=== PATIENT | male | born 1945 | race Caucasian/White ===

== ENCOUNTER 2017-06-11 20:29 | Inpatient (IN) | payer OTHER ==
[~2017-06-11] VITALS: Ht 170.2 cm; Wt 70.6 kg
[2017-06-11] MEDS ORDERED: NYST100016 TOP (20:47)
[2017-06-11] MEDS ORDERED: HALO100I IM (20:47)
[2017-06-11] MEDS ORDERED: DOCU250C11 PO (20:47)
[2017-06-11] MEDS ORDERED: HYDR25TA4 PO (20:47)
[2017-06-11] MEDS ORDERED: ATV/1 PO (20:47)
[2017-06-11] MEDS ORDERED: LEVO50TA6 PO (20:47)
--- NOTE | 2017-06-11 20:56 | EMERGENCY ROOM VISIT NOTE ---
History Report prepared by Edith: Kristina Chand Under the Supervision of: Dr. Kamaljit Jacobson D.O. First contact with patient: 20:47 Chief Complaint: BLEEDING Stated Complaint: UNABLE TO VOID, CATHETER History of Present Illness The patient is a 72 year old male who presents to the Emergency Room with complaints of sudden bleeding in the right lower groin beginning today. Per police, the patient had a hernia repair and has a catheter. The patient denies having fevers. Source of History: patient, police Onset: today Position: other (right lower groin ) Quality: other (bleeding ) Timing: other (sudden ) Associated Symptoms: No fevers Review of Systems See HPI for pertinent positives & negatives. A total of 10 systems reviewed and were otherwise negative. Past Medical & Surgical Surgical Problems: (1) H/O hernia repair Family History No pertinent family history stated. Social History Smoking Status: Former Smoker Housing Status: other (jail ) Current/Historical Medications Scheduled Docusate Sodium (Docusate Sodium), 500 MG PO BID Haloperidol Decanoate (Haldol Decanoate 100), 1 ML IM [id number] Hydrochlorothiazide (Hctz), 25 MG PO DAILY Levothyroxine Sodium (Levothyroxine Sodium), 50 MCG PO DAILY Lorazepam (Ativan), 1 MG PO DAILY Nystatin (Topical) (Nyamyc), 1 DOSE TOP BID Allergies Coded Allergies: Penicillins (Verified Allergy, Unknown, Unsure, 06/11/17) Physical Exam Vital Signs Date Time Temp Pulse Resp B/P (MAP) Pulse Ox O2 Delivery O2 Flow Rate FiO2 06/12/17 00:22 75 16 126/76 97 Room Air 06/11/17 22:27 88 16 121/76 96 Room Air 06/11/17 20:36 37.0 97 18 127/86 96 Room Air Physical Exam GENERAL: Patient is awake, alert, and in no acute distress. Patient is resting comfortably and showing no signs of anxiety EYES: The conjunctivae are clear. The pupils are round and reactive. EARS, NOSE, MOUTH AND THROAT: The nose is without any evidence of any deformity. Mucous membranes are moist tongue is midline NECK: The neck is nontender and supple. RESPIRATORY: Normal respiratory effort is noted there is no evidence of wheezing rhonchi or rales CARDIOVASCULAR: Regular rate and rhythm noted there no murmurs rubs or gallops normal S1 normal S2 GASTROINTESTINAL: The abdomen is mildly distended but soft. No specific guarding or rigidity. MUSCULOSKELETAL/EXTREMITIES: There is no evidence of gross deformity full range of motion is noted in the hips and shoulders. Trace pedal edema bilaterally. SKIN: Significant swelling and ecchymosis in right inguinal area consistent with recent inguinal hernia repair. Ecchymosis was noted tracking into the right jose luis-scrotum. NEUROLOGIC: Baseline. Medical Decision & Procedures ER Provider Diagnostic Interpretation: Radiology results as stated below per my review and radiologist interpretation: ABDOMEN 2VIEW W/PA CHEST RTN CLINICAL HISTORY: Abdominal pain COMPARISON STUDY: No previous studies for comparison. FINDINGS: The heart is normal in size. There is a retrocardiac opacity consistent with a hiatal hernia. There is bibasal interstitial thickening. There is no free intraperitoneal air. There is suspected focal eventration right hemidiaphragm with probable colonic interposition. There are bilateral rib deformities. There are no abnormally dilated loops of large or small bowel. There are no transition zones indicate bowel obstruction. There is ar 5 mm right-sided abdominal calcification, likely representing either a renal calculus or gallstone. IMPRESSION: 1. No evidence of bowel obstruction. No evidence of free air 2. Right-sided abdominal calcification, likely representing either renal calculus or gallstone Electronically signed by: Keegan Lee M.D. 06/11/2017 9:50 PM Dictated Date/Time: 06/11/2017 9:48 PM Laboratory Results Test 06/11/17 21:10 Prothrombin Time 10.1 SECONDS (9.0-12.0) Prothromb Time International Ratio 0.9 (0.9-1.1) Activated Partial Thromboplast Time 26.4 SECONDS (21.0-31.0) Partial Thromboplastin Ratio 1.0 Total Bilirubin 0.2 mg/dl (0.2-1) Direct Bilirubin < 0.1 mg/dl (0-0.2) Aspartate Amino Transf (AST/SGOT) 15 U/L (15-37) Alanine Aminotransferase (ALT/SGPT) 14 U/L (12-78) Alkaline Phosphatase 78 U/L (45-117) Total Protein 6.7 gm/dl (6.4-8.2) Albumin 2.9 gm/dl (3.4-5.0) Laboratory results per my review. ED Course 2049: The patient was evaluated in room C6. A complete history and physical examination were performed. 2229: I updated the patient on his results. 2247: The patient is still bleeding. 2326: I discussed the patient's case with Dr. Jay. He will come evaluate the patient. 0005: I discussed the patient's case with Dr. Fontanez. The patient will be evaluated for further management. 0015: Upon reevaluation, the patient is resting. I discussed results and treatment plan with him. He verbalizes agreement and understanding. I spoke with Dr. Fontanez of [facility]. The patient will be evaluated for further management and care. Medical Decision Nursing notes reviewed. The patient is a 72-year-old male who presented to the emergency department for an evaluation of swelling and pain in the right groin. The patient had a recent right inguinal hernia surgery at [facility] but he was brought here by the jail transportation for an evaluation of postop swelling and bleeding. The patient had significant pain in the area. I discussed this case with the on- call general surgeon. He was evaluated in the emergency department by the general surgeon. He was felt to be a good candidate for observation because of his swelling and bleeding. I discussed his case with the on-call [facility] hospitalist. They have agreed to evaluate the patient in the emergency department for further management and disposition. Medication Reconcilliation Current Medication List: was personally reviewed by me Blood Pressure Screening Patient's blood pressure: Normal blood pressure Consults Time Called: 2319 Consulting Physician: Dr. Jay-Surgery Returned Call: [phone] I discussed the patient's case with Dr. Jay. He will come evaluate the patient. Additional Consults: Time Called: 2344 Consulted Physician: Dr. Fontanez-[facility] Returned Call: [phone] Additional Comments: I discussed the patient's case with Dr. Fontanez. The patient will be evaluated for further management. Impression Primary Impression: Post-op bleeding Scribe Attestation The scribe's documentation has been prepared under my direction and personally reviewed by me in its entirety. I confirm that the note above accurately reflects all work, treatment, procedures, and medical decision making performed by me. Departure Information Dispostion Home / Self-Care Referrals Cherelle PENDLETON (PCP) Forms HOME CARE DOCUMENTATION FORM, IMPORTANT VISIT INFORMATION Patient Instructions ED Wound Check Post Op Bleeding, My [facility] Additional Instructions Follow-up with the general surgeon this week for reevaluation. Continue to do dressing changes 2-3 times a day. Avoid any strenuous activity.
[2017-06-11 21:20] LABS: BASO % 0.4 %; BASO ABS # 0.02 K/uL (0-0.2); COMPLETE YES; EOS % 5.6 %; IG% 0.2 %; LYMPH % 21.3 %; LYMPH ABS # 1.11 K/uL (1.2-3.4); MEAN CELL VOLUME 89.1 fL (80-100); MEAN CORPUSCULAR HEMOGLOBIN 29.2 pg (25-34); MEAN CORPUSCULAR HGB CONC 32.8 g/dl (32-36); MEAN PLATELET VOLUME 8.6 fL (7.4-10.4); MONO % 12.1 %; NEUT % 60.4 %; PLATELET COUNT 225 K/uL (130-400); RED BLOOD COUNT 3.59 M/uL (4.7-6.1); WHITE BLOOD COUNT 5.22 K/uL (4.8-10.8)
[2017-06-11 21:37] LABS: ALT/SGPT 14 U/L (12-78); BLOOD UREA NITROGEN 31 mg/dl (7-18); BUN/CREATININE RATIO 33.8 (10-20); CALCIUM 8.8 mg/dl (8.5-10.1); CARBON DIOXIDE 31 mmol/L (21-32); CHLORIDE 105 mmol/L (98-107); CREATININE 0.92 mg/dl (0.60-1.40); GLUCOSE 165 mg/dl (70-99); POTASSIUM 3.1 mmol/L (3.5-5.1); SODIUM 139 mmol/L (136-145)
[2017-06-11 21:39] LABS: ALKALINE PHOSPHATASE 78 U/L (45-117); AST/SGOT 15 U/L (15-37)
[2017-06-11 21:45] LABS: INR 0.9 (0.9-1.1); PROTHROMBIN TIME (PATIENT) 10.1 SECONDS (9.0-12.0)
--- NOTE | 2017-06-11 21:51 | DIAGNOSTIC IMAGING REPORT ---
ABDOMEN 2VIEW W/PA CHEST RTN CLINICAL HISTORY: Abdominal pain COMPARISON STUDY: No previous studies for comparison. FINDINGS: The heart is normal in size. There is a retrocardiac opacity consistent with a hiatal hernia. There is bibasal interstitial thickening. There is no free intraperitoneal air. There is suspected focal eventration right hemidiaphragm with probable colonic interposition. There are bilateral rib deformities. There are no abnormally dilated loops of large or small bowel. There are no transition zones indicate bowel obstruction. There is ar 5 mm right-sided abdominal calcification, likely representing either a renal calculus or gallstone. IMPRESSION: 1. No evidence of bowel obstruction. No evidence of free air 2. Right-sided abdominal calcification, likely representing either renal calculus or gallstone Electronically signed by: Keegan Lee M.D. 06/11/2017 9:50 PM Dictated Date/Time: 06/11/2017 9:48 PM
--- NOTE | 2017-06-12 00:24 | Surgery Consultation ---
Consultation Date of Consultation: Jun 12, 2017. Attending Physician: History of Present Illness The patient is a 72 year old male who presents to the Emergency Room with complaints of sudden bleeding in the right lower groin beginning today. Per police, the patient had a hernia repair and has a catheter. The patient denies having fevers. now pt denies pain on right inguinal area, no active bleeding from incision site, pt had right inguinal hernia repair by other surgeon in other hospital on 06/03/2017. Past Medical/Surgical History Medical Problems: (1) Post-op bleeding Status: Acute Social History Smoking Status: Former Smoker Smokeless Tobacco Use: No Alcohol Use: occasionally Drug Use: none Housing Status: other (long-term ) Allergies Coded Allergies: Penicillins (Verified Allergy, Unknown, Unsure, 06/11/17) Home Medications Scheduled Docusate Sodium (Docusate Sodium), 500 MG PO BID Haloperidol Decanoate (Haldol Decanoate 100), 1 ML IM [id number] Hydrochlorothiazide (Hctz), 25 MG PO DAILY Levothyroxine Sodium (Levothyroxine Sodium), 50 MCG PO DAILY Lorazepam (Ativan), 1 MG PO DAILY Nystatin (Topical) (Nyamyc), 1 DOSE TOP BID Review of Systems Constitutional: No fever, No chills, No sweats, No weight loss, No weakness, No fatigue, No problem reported Eyes: No worsening of vision, No eye pain, No redness, No discharge, No diplopia, No problem reported ENT: No hearing loss, No unusual epistaxis, No nasal symptoms, No sore throat, No tinnitus, No dental problems, No trouble swallowing, No problem reported Respiratory: No cough, No sputum, No wheezing, No shortness of breath, No dyspnea on exertion, No dyspnea at rest, No hemoptysis, No problem reported Cardiovascular: No chest pain, No orthopnea, No PND, No edema, No claudication , No palpitations, No problem reported Abdomen: + problem reported (S/P right inguinal hernia repair on 06/03/2017), No pain, No nausea, No vomiting, No diarrhea, No constipation, No GI bleeding Genitourinary - Male: No hematuria, No dysuria, No urinary frequency, No urinary urgency, No urinary hesitancy, No urinary retention, No urinary incontinence, No penile discharge, No lesions, No impotence, No problem reported Neurologic: No memory loss, No paralysis, No weakness, No numbness/tingling, No vertigo, No balance problems, No problem reported Psychiatric: No depression symptoms, No anhedonism, No anxiety, No insomnia, No substance abuse, No problem reported Endocrine: No fatigue, No excessive thirst, No excessive urination, No problem reported Hematologic / Lymphatic: No abnormal bleeding/bruising, No clotting problems, No swollen lymph nodes, No night sweats, No problem reported Physical Exam Date Time Temp Pulse Resp B/P (MAP) Pulse Ox O2 Delivery O2 Flow Rate FiO2 06/11/17 22:27 88 16 121/76 96 Room Air 06/11/17 20:36 37.0 97 18 127/86 96 Room Air General Appearance: WD/WN, no apparent distress Head: normocephalic Eyes: normal inspection ENT: normal ENT inspection Neck: supple, no JVD Respiratory/Chest: chest non-tender, lungs clear Cardiovascular: regular rate, rhythm, no edema, no gallop, no JVD, no murmur Abdomen/GI: normal bowel sounds, non tender, soft (some swelling on right inguinal incision, no active bleeding, no redness, no tenderness, ) Extremities/Musculoskelatal: normal inspection, no calf tenderness, normal capillary refill Neurologic/Psych: no motor/sensory deficits, alert, normal mood/affect Skin: normal color, warm/dry, no rash Laboratory Results Last 24 Hours Test 06/11/17 21:10 White Blood Count 5.22 K/uL Red Blood Count 3.59 M/uL Hemoglobin 10.5 g/dL Hematocrit 32.0 % Mean Corpuscular Volume 89.1 fL Mean Corpuscular Hemoglobin 29.2 pg Mean Corpuscular Hemoglobin Concent 32.8 g/dl Platelet Count 225 K/uL Mean Platelet Volume 8.6 fL Neutrophils (%) (Auto) 60.4 % Lymphocytes (%) (Auto) 21.3 % Monocytes (%) (Auto) 12.1 % Eosinophils (%) (Auto) 5.6 % Basophils (%) (Auto) 0.4 % Neutrophils # (Auto) 3.16 K/uL Lymphocytes # (Auto) 1.11 K/uL Monocytes # (Auto) 0.63 K/uL Eosinophils # (Auto) 0.29 K/uL Basophils # (Auto) 0.02 K/uL RDW Standard Deviation 47.5 fL RDW Coefficient of Variation 14.5 % Immature Granulocyte % (Auto) 0.2 % Immature Granulocyte # (Auto) 0.01 K/uL Prothrombin Time 10.1 SECONDS Prothromb Time International Ratio 0.9 Activated Partial Thromboplast Time 26.4 SECONDS Partial Thromboplastin Ratio 1.0 Sodium Level 139 mmol/L Potassium Level 3.1 mmol/L Chloride Level 105 mmol/L Carbon Dioxide Level 31 mmol/L Anion Gap 4.0 mmol/L Blood Urea Nitrogen 31 mg/dl Creatinine 0.92 mg/dl Est Creatinine Clear Calc Drug Dose 68.9 ml/min Estimated GFR () 96.6 Estimated GFR (Non- 83.4 BUN/Creatinine Ratio 33.8 Random Glucose 165 mg/dl Calcium Level 8.8 mg/dl Total Bilirubin 0.2 mg/dl Direct Bilirubin < 0.1 mg/dl Aspartate Amino Transf (AST/SGOT) 15 U/L Alanine Aminotransferase (ALT/SGPT) 14 U/L Alkaline Phosphatase 78 U/L Total Protein 6.7 gm/dl Albumin 2.9 gm/dl Assessment & Plan Assement: pt is a 72 year old male who presents to ER for incision bleeding after 8 days right inguinal hernia repair, IMP: S/P right inguinal hernia repair, incision hemotoma Plan, I recommend that hospitalist will admit pt to hospital, for 1-2 days, repeat CBC in AM, I will F/U, Thanks,
[2017-06-12] MEDS ORDERED: ONDANSETRON INJ 2 MG/ML 2 ML VIAL IV PRN (01:45)
[2017-06-12] MEDS ORDERED: ACETAMINOPHEN 325 MG TAB PO PRN (01:45)
--- NOTE | 2017-06-12 01:47 | History and Physical ---
History & Physical Date & Time of Service: Jun 12, 2017 at 01:46 Chief Complaint: Unable To Void, Catheter Primary Care Physician: Cherelle PENDLETON History of Present Illness Source: patient, clinic records, hospital records, police Patient is a 72 Yr male with PMH of Neurogenic bladder, HTN, Hypothyroidism, Schizophrenia and other problems who recently got Right Inguinal hernia repair presents with history of sudden onset of bleeding from the surgical site today. Patient is a very poor historian and most of the history is obtained from Old medical records, ED staff. Patient denies any history of chest pain, SOB, abdominal pain, nausea, vomiting, fever, chills, headache, dizziness. No other history could be obtained. Past Medical/Surgical History Surgical Problems: (1) H/O hernia repair Status: Resolved Family History Could not be obtained as patient is poor historian Social History Smoking Status: Former Smoker Smokeless Tobacco Use: No Alcohol Use: occasionally Drug Use: none Allergies Coded Allergies: Penicillins (Verified Allergy, Unknown, Unsure, 06/11/17) Home Medications Scheduled Docusate Sodium (Docusate Sodium), 500 MG PO BID Haloperidol Decanoate (Haldol Decanoate 100), 1 ML IM [id number] Hydrochlorothiazide (Hctz), 25 MG PO DAILY Levothyroxine Sodium (Levothyroxine Sodium), 50 MCG PO DAILY Lorazepam (Ativan), 1 MG PO DAILY Nystatin (Topical) (Nyamyc), 1 DOSE TOP BID Review of Systems See HPI for pertinent positives & negatives. A total of 10 systems reviewed and were otherwise negative. Physical Exam Vital Signs Date Time Temp Pulse Resp B/P (MAP) Pulse Ox O2 Delivery O2 Flow Rate FiO2 06/12/17 00:22 75 16 126/76 97 Room Air 06/11/17 22:27 88 16 121/76 96 Room Air 06/11/17 20:36 37.0 97 18 127/86 96 Room Air General Appearance: WD/WN, no apparent distress Head: normocephalic, atraumatic Eyes: normal inspection, PERRL, EOMI, sclerae normal ENT: normal ENT inspection, hearing grossly normal Neck: supple, no JVD, trachea midline Respiratory/Chest: chest non-tender, lungs clear, normal breath sounds, no respiratory distress, no accessory muscle use Cardiovascular: regular rate, rhythm, no edema, no murmur Abdomen/GI: non tender, soft, + hernia (abdominal), + pertinent finding (Right Inguinal ricardo and dressing with bleeding) Back: normal inspection Extremities/Musculoskelatal: normal inspection, no pedal edema Neurologic/Psych: no motor/sensory deficits, alert, normal mood/affect, oriented x 3, + pertinent finding (Grossly no focal deficits) Skin: normal color, warm/dry Diagnostics Laboratory Results Results Past 24 Hours Test 06/11/17 21:10 Range/Units White Blood Count 5.22 4.8-10.8 K/uL Red Blood Count 3.59 4.7-6.1 M/uL Hemoglobin 10.5 14.0-18.0 g/dL Hematocrit 32.0 42-52 % Mean Corpuscular Volume 89.1 80-100 fL Mean Corpuscular Hemoglobin 29.2 25-34 pg Mean Corpuscular Hemoglobin Concent 32.8 32-36 g/dl Platelet Count 225 130-400 K/uL Mean Platelet Volume 8.6 7.4-10.4 fL Neutrophils (%) (Auto) 60.4 % Lymphocytes (%) (Auto) 21.3 % Monocytes (%) (Auto) 12.1 % Eosinophils (%) (Auto) 5.6 % Basophils (%) (Auto) 0.4 % Neutrophils # (Auto) 3.16 1.4-6.5 K/uL Lymphocytes # (Auto) 1.11 1.2-3.4 K/uL Monocytes # (Auto) 0.63 0.11-0.59 K/uL Eosinophils # (Auto) 0.29 0-0.5 K/uL Basophils # (Auto) 0.02 0-0.2 K/uL RDW Standard Deviation 47.5 36.4-46.3 fL RDW Coefficient of Variation 14.5 11.5-14.5 % Immature Granulocyte % (Auto) 0.2 % Immature Granulocyte # (Auto) 0.01 0.00-0.02 K/uL Prothrombin Time 10.1 9.0-12.0 SECONDS Prothromb Time International Ratio 0.9 0.9-1.1 Activated Partial Thromboplast Time 26.4 21.0-31.0 SECONDS Partial Thromboplastin Ratio 1.0 Sodium Level 139 136-145 mmol/L Potassium Level 3.1 3.5-5.1 mmol/L Chloride Level 105 98-107 mmol/L Carbon Dioxide Level 31 21-32 mmol/L Anion Gap 4.0 3-11 mmol/L Blood Urea Nitrogen 31 7-18 mg/dl Creatinine 0.92 0.60-1.40 mg/dl Est Creatinine Clear Calc Drug Dose 68.9 ml/min Estimated GFR () 96.6 Estimated GFR (Non- 83.4 BUN/Creatinine Ratio 33.8 10-20 Random Glucose 165 70-99 mg/dl Calcium Level 8.8 8.5-10.1 mg/dl Total Bilirubin 0.2 0.2-1 mg/dl Direct Bilirubin < 0.1 0-0.2 mg/dl Aspartate Amino Transf (AST/SGOT) 15 15-37 U/L Alanine Aminotransferase (ALT/SGPT) 14 12-78 U/L Alkaline Phosphatase 78 45-117 U/L Total Protein 6.7 6.4-8.2 gm/dl Albumin 2.9 3.4-5.0 gm/dl Diagnostic Radiology CT ABD: 1. No evidence of bowel obstruction. No evidence of free air 2. Right-sided abdominal calcification, likely representing either renal calculus or gallstone Impression Assessment and Plan S/P right inguinal hernia repair, Incision hematoma Acute blood loss anemia: No signs of infection CT abd: No evidence of bowel obstruction. No evidence of free air Appreciate Surgery Input Monitor Hb Transfuse PRN if Hb <7 wound care Hypokalemia: Replace and monitor check Mag levels Neurogenic bladder: Uses straight cath TID at baseline per records HTN: continue home meds Hypothyroidism: continue levothyroxine Schizophrenia continue home meds DVT PX: SCDs Code Status: Full Code VTE Prophylaxis VTE Risk Assessment Done? Y/N: Yes Risk Level: Low
[2017-06-12] MEDS ORDERED: POTASSIUM CHLORIDE 10 MEQ TABCR PO ONE (02:00)
[2017-06-12 02:20] VITALS: BP 149/90; PULSE 79; TEMP 36.8; O2SAT 98; Ht 170.2 cm; Wt 70.6 kg
[2017-06-12 02:45] LABS: BASO % 0.6 %; BASO ABS # 0.03 K/uL (0-0.2); COMPLETE YES; EOS % 5.6 %; HEMATOCRIT 33.1 % (42-52); IG% 0.2 %; LYMPH % 31.2 %; LYMPH ABS # 1.68 K/uL (1.2-3.4); MEAN CELL VOLUME 89.2 fL (80-100); MEAN CORPUSCULAR HEMOGLOBIN 29.4 pg (25-34); MEAN CORPUSCULAR HGB CONC 32.9 g/dl (32-36); MEAN PLATELET VOLUME 8.7 fL (7.4-10.4); MONO % 9.3 %; NEUT % 53.1 %; PLATELET COUNT 230 K/uL (130-400); RED BLOOD COUNT 3.71 M/uL (4.7-6.1); WHITE BLOOD COUNT 5.39 K/uL (4.8-10.8)
[2017-06-12] MEDS ORDERED: POTASSIUM CHLORIDE INJ 40 MEQ in SODIUM CHLORIDE 0.9% 1000ML 1,000 ML IV ONE (03:00)
[2017-06-12 03:10] LABS: BUN/CREATININE RATIO 30.5 (10-20); CALCIUM 8.7 mg/dl (8.5-10.1); CREATININE 0.9 mg/dl (0.60-1.40); MAGNESIUM 1.9 mg/dl (1.8-2.4); POTASSIUM 3.5 mmol/L (3.5-5.1)
[2017-06-12] MEDS ORDERED: INFLUENZA VACCINE HIGH DOSE 65+ 0.5 ML SYR IM. ONE (03:45)
[2017-06-12] MEDS ORDERED: PNEUMOCOCCAL ADMINISTRATION CHARGE ONE (03:45)
[2017-06-12] MEDS ORDERED: PNEUMOCOCCAL POLYSACCHARIDES 25 MCG/0.5 ML VIAL/SYR IM. ONE (03:45)
[2017-06-12] MEDS ORDERED: INFLUENZA ADMINISTRATION CHARGE ONE (03:45)
[2017-06-12] MEDS: LEVOTHYROXINE 50 MCG TAB PO SCH (05:46)
[2017-06-12 07:11] VITALS: BP 146/82; PULSE 71; TEMP 36.9; O2SAT 99
[2017-06-12] MEDS ORDERED: NURSING VERBAL MED ORDER ONE (08:45)
[2017-06-12] MEDS: LORAZEPAM 1 MG TAB PO SCH (09:29)
[2017-06-12] MEDS: HYDROCHLOROTHIAZIDE 25 MG TAB PO SCH (09:29)
[2017-06-12] MEDS: DOCUSATE SODIUM 100 MG CAP PO SCH ×2 (09:30→20:32)
[2017-06-12] MEDS ORDERED: HALOPERIDOL DECANOATE INJ 50 MG/ML VIAL IM SCH (10:00)
--- NOTE | 2017-06-12 13:02 | Surgery Progress Note ---
Surgery Progress Note Date of Service Jun 12, 2017. Subjective I got a call for some drainage from incision, pt denies fever, no incision pain, I remove the dressing, no drainage from incision now, no redness, some swelling on incision, Objective Vital Signs: Date Time Temp Pulse Resp B/P (MAP) Pulse Ox O2 Delivery O2 Flow Rate FiO2 06/12/17 07:45 Room Air 06/12/17 07:11 36.9 71 18 146/82 (103) 99 Room Air 06/12/17 03:10 Room Air 06/12/17 02:20 36.8 79 16 149/90 98 Room Air 06/12/17 00:22 75 16 126/76 97 Room Air 06/11/17 22:27 88 16 121/76 96 Room Air 06/11/17 20:36 37.0 97 18 127/86 96 Room Air General Appearance: WD/WN Head: normocephalic Neck: supple, no JVD Respiratory/Chest: chest non-tender, lungs clear Cardiovascular: regular rate, rhythm, no edema Abdomen: normal bowel sounds, non tender, non distended, soft Incision(s): clean, dry, intact, no erythema, no drainage, hematoma Extremities: normal range of motion, non-tender, normal inspection Laboratory Results: Results Past 24 Hours Test 06/11/17 21:10 06/12/17 02:32 Range/Units White Blood Count 5.22 5.39 4.8-10.8 K/uL Red Blood Count 3.59 3.71 4.7-6.1 M/uL Hemoglobin 10.5 10.9 14.0-18.0 g/dL Hematocrit 32.0 33.1 42-52 % Mean Corpuscular Volume 89.1 89.2 80-100 fL Mean Corpuscular Hemoglobin 29.2 29.4 25-34 pg Mean Corpuscular Hemoglobin Concent 32.8 32.9 32-36 g/dl Platelet Count 225 230 130-400 K/uL Mean Platelet Volume 8.6 8.7 7.4-10.4 fL Neutrophils (%) (Auto) 60.4 53.1 % Lymphocytes (%) (Auto) 21.3 31.2 % Monocytes (%) (Auto) 12.1 9.3 % Eosinophils (%) (Auto) 5.6 5.6 % Basophils (%) (Auto) 0.4 0.6 % Neutrophils # (Auto) 3.16 2.87 1.4-6.5 K/uL Lymphocytes # (Auto) 1.11 1.68 1.2-3.4 K/uL Monocytes # (Auto) 0.63 0.50 0.11-0.59 K/uL Eosinophils # (Auto) 0.29 0.30 0-0.5 K/uL Basophils # (Auto) 0.02 0.03 0-0.2 K/uL RDW Standard Deviation 47.5 47.9 36.4-46.3 fL RDW Coefficient of Variation 14.5 14.7 11.5-14.5 % Immature Granulocyte % (Auto) 0.2 0.2 % Immature Granulocyte # (Auto) 0.01 0.01 0.00-0.02 K/uL Prothrombin Time 10.1 9.0-12.0 SECONDS Prothromb Time International Ratio 0.9 0.9-1.1 Activated Partial Thromboplast Time 26.4 21.0-31.0 SECONDS Partial Thromboplastin Ratio 1.0 Sodium Level 139 141 136-145 mmol/L Potassium Level 3.1 3.5 3.5-5.1 mmol/L Chloride Level 105 106 98-107 mmol/L Carbon Dioxide Level 31 31 21-32 mmol/L Anion Gap 4.0 4.0 3-11 mmol/L Blood Urea Nitrogen 31 27 7-18 mg/dl Creatinine 0.92 0.90 0.60-1.40 mg/dl Est Creatinine Clear Calc Drug Dose 68.9 70.4 ml/min Estimated GFR () 96.6 99.2 Estimated GFR (Non- 83.4 85.6 BUN/Creatinine Ratio 33.8 30.5 10-20 Random Glucose 165 94 70-99 mg/dl Calcium Level 8.8 8.7 8.5-10.1 mg/dl Total Bilirubin 0.2 0.2-1 mg/dl Direct Bilirubin < 0.1 0-0.2 mg/dl Aspartate Amino Transf (AST/SGOT) 15 15-37 U/L Alanine Aminotransferase (ALT/SGPT) 14 12-78 U/L Alkaline Phosphatase 78 45-117 U/L Total Protein 6.7 6.4-8.2 gm/dl Albumin 2.9 3.4-5.0 gm/dl Magnesium Level 1.9 1.8-2.4 mg/dl Microbiology Results 06/12/17 MRSA DNA Surveillance Screen - Final, Complete Specimen Negative for MRSA by DNA Probe Assessment & Plan IMP S/P right inguinal hernia repair some drainage from incision per-nurse, most likely some peritoneal fluid leak from resection hernia sac, now no active leak, I recommend , keep pt here for one more day, bed rest, I will check the incision tomorrow, possible D/C tomorrow.
[2017-06-12 13:20] LABS: HEMATOCRIT 32.1 % (42-52)
[2017-06-12 15:38] VITALS: BP 133/87; PULSE 80; TEMP 37; O2SAT 95
--- NOTE | 2017-06-12 16:43 | Surgery Progress Note ---
Surgery Progress Note Date of Service Jun 12, 2017. Subjective Post OP Day: POD # 9 s/p right inguinal hernia repair at outside hospital LATE ENTRY FOR PATIENT 7:30 AM ROUNDING unable to obtain ROS by patient, very hard to understand patient. Objective Vital Signs: Date Time Temp Pulse Resp B/P (MAP) Pulse Ox O2 Delivery O2 Flow Rate FiO2 06/12/17 15:38 37.0 80 18 133/87 (102) 95 Room Air 06/12/17 07:45 Room Air 06/12/17 07:11 36.9 71 18 146/82 (103) 99 Room Air 06/12/17 03:10 Room Air 06/12/17 02:20 36.8 79 16 149/90 98 Room Air 06/12/17 00:22 75 16 126/76 97 Room Air 06/11/17 22:27 88 16 121/76 96 Room Air 06/11/17 20:36 37.0 97 18 127/86 96 Room Air General Appearance: WD/WN, no apparent distress Head: normocephalic, atraumatic Incision(s): clean, dry, intact, no erythema, no drainage, ecchymosis ( moderate ecchymosis of the right groin and lateral hip, no significnat edema, nontender to palpation) Laboratory Results: Results Past 24 Hours Test 06/11/17 21:10 06/12/17 02:32 06/12/17 13:09 Range/Units White Blood Count 5.22 5.39 4.8-10.8 K/uL Red Blood Count 3.59 3.71 4.7-6.1 M/uL Hemoglobin 10.5 10.9 10.4 14.0-18.0 g/dL Hematocrit 32.0 33.1 32.1 42-52 % Mean Corpuscular Volume 89.1 89.2 80-100 fL Mean Corpuscular Hemoglobin 29.2 29.4 25-34 pg Mean Corpuscular Hemoglobin Concent 32.8 32.9 32-36 g/dl Platelet Count 225 230 130-400 K/uL Mean Platelet Volume 8.6 8.7 7.4-10.4 fL Neutrophils (%) (Auto) 60.4 53.1 % Lymphocytes (%) (Auto) 21.3 31.2 % Monocytes (%) (Auto) 12.1 9.3 % Eosinophils (%) (Auto) 5.6 5.6 % Basophils (%) (Auto) 0.4 0.6 % Neutrophils # (Auto) 3.16 2.87 1.4-6.5 K/uL Lymphocytes # (Auto) 1.11 1.68 1.2-3.4 K/uL Monocytes # (Auto) 0.63 0.50 0.11-0.59 K/uL Eosinophils # (Auto) 0.29 0.30 0-0.5 K/uL Basophils # (Auto) 0.02 0.03 0-0.2 K/uL RDW Standard Deviation 47.5 47.9 36.4-46.3 fL RDW Coefficient of Variation 14.5 14.7 11.5-14.5 % Immature Granulocyte % (Auto) 0.2 0.2 % Immature Granulocyte # (Auto) 0.01 0.01 0.00-0.02 K/uL Prothrombin Time 10.1 9.0-12.0 SECONDS Prothromb Time International Ratio 0.9 0.9-1.1 Activated Partial Thromboplast Time 26.4 21.0-31.0 SECONDS Partial Thromboplastin Ratio 1.0 Sodium Level 139 141 136-145 mmol/L Potassium Level 3.1 3.5 3.5-5.1 mmol/L Chloride Level 105 106 98-107 mmol/L Carbon Dioxide Level 31 31 21-32 mmol/L Anion Gap 4.0 4.0 3-11 mmol/L Blood Urea Nitrogen 31 27 7-18 mg/dl Creatinine 0.92 0.90 0.60-1.40 mg/dl Est Creatinine Clear Calc Drug Dose 68.9 70.4 ml/min Estimated GFR () 96.6 99.2 Estimated GFR (Non- 83.4 85.6 BUN/Creatinine Ratio 33.8 30.5 10-20 Random Glucose 165 94 70-99 mg/dl Calcium Level 8.8 8.7 8.5-10.1 mg/dl Total Bilirubin 0.2 0.2-1 mg/dl Direct Bilirubin < 0.1 0-0.2 mg/dl Aspartate Amino Transf (AST/SGOT) 15 15-37 U/L Alanine Aminotransferase (ALT/SGPT) 14 12-78 U/L Alkaline Phosphatase 78 45-117 U/L Total Protein 6.7 6.4-8.2 gm/dl Albumin 2.9 3.4-5.0 gm/dl Magnesium Level 1.9 1.8-2.4 mg/dl Microbiology Results 06/12/17 MRSA DNA Surveillance Screen - Final, Complete Specimen Negative for MRSA by DNA Probe Assessment & Plan POD # 9 s/p right inguinal hernia repair at outside hospital. Presented to emergency department with post operative bleeding last evening. Bleeding has stopped. There is some mild edema of the surgical site, no active bleeding. Hemoglobin has remained stable overnight. Plan: Patient was originally seen at 7:[address] Jay. Patient doing well, incision was clean/dry/intact without any bleeding or active drainage. H&H stable. Recommend discharge back to correctional facility and close follow-up with Surgeon in 3 days. Was called later in the morning by nursing staff due to moderate amount of bleeding from incision site. I did not visualize the bleeding but re-inspected the surgical site. Moderate swelling present but no active bleeding or drainage. Compression dressing applied. Advised bed rest and observation for the night. continue medical management will re-evaluate tomorrow morning. Dr. Jay has seen and examined patient, agrees with above.
--- NOTE | 2017-06-12 17:27 | Progress Note ---
Internal Med Progress Note Date of Service: Jun 12, 2017. Provider Documentation: SUBJECTIVE: resting comfortably some pain at right inguinal hernia surgery site tolerating diet afebrile no sob OBJECTIVE: Vital Signs-as noted below Exam: General-alert and awake. Not in distress ENT-normal hearing Neck-no neck masses Lungs-cta b/l no wheezing or crackles present Heart-s1 and s2 heard regular rate and rhythm no murmurs Abdomen-soft bowel sounds present abdominal hernia seen right inguinal hernia repair site in dressing and clean Extremities-no erythema no edema Neuro-alert and awake moves extremities Lab data as noted below. ASSESSMENT & PLAN: S/P right inguinal hernia repair#9, Incision hematoma Acute blood loss anemia: No signs of infection CT abd: unremarkable hb stable to observe tonight and if stable to d/c in am Hypokalemia: Replace Neurogenic bladder: Uses straight cath TID at baseline per records HTN: stable on hctz Hypothyroidism: on levothyroxine Schizophrenia continue home meds DVT PX: SCDs DISPOSITION possible d/c in am if stable Vital Signs: Date Time Temp Pulse Resp B/P (MAP) Pulse Ox O2 Delivery O2 Flow Rate FiO2 06/12/17 15:38 37.0 80 18 133/87 (102) 95 Room Air 06/12/17 15:30 Room Air 06/12/17 07:45 Room Air 06/12/17 07:11 36.9 71 18 146/82 (103) 99 Room Air 06/12/17 03:10 Room Air 06/12/17 02:20 36.8 79 16 149/90 98 Room Air 06/12/17 00:22 75 16 126/76 97 Room Air 06/11/17 22:27 88 16 121/76 96 Room Air 06/11/17 20:36 37.0 97 18 127/86 96 Room Air Lab Results: Results Past 24 Hours Test 06/11/17 21:10 06/12/17 02:32 06/12/17 13:09 Range/Units White Blood Count 5.22 5.39 4.8-10.8 K/uL Red Blood Count 3.59 3.71 4.7-6.1 M/uL Hemoglobin 10.5 10.9 10.4 14.0-18.0 g/dL Hematocrit 32.0 33.1 32.1 42-52 % Mean Corpuscular Volume 89.1 89.2 80-100 fL Mean Corpuscular Hemoglobin 29.2 29.4 25-34 pg Mean Corpuscular Hemoglobin Concent 32.8 32.9 32-36 g/dl Platelet Count 225 230 130-400 K/uL Mean Platelet Volume 8.6 8.7 7.4-10.4 fL Neutrophils (%) (Auto) 60.4 53.1 % Lymphocytes (%) (Auto) 21.3 31.2 % Monocytes (%) (Auto) 12.1 9.3 % Eosinophils (%) (Auto) 5.6 5.6 % Basophils (%) (Auto) 0.4 0.6 % Neutrophils # (Auto) 3.16 2.87 1.4-6.5 K/uL Lymphocytes # (Auto) 1.11 1.68 1.2-3.4 K/uL Monocytes # (Auto) 0.63 0.50 0.11-0.59 K/uL Eosinophils # (Auto) 0.29 0.30 0-0.5 K/uL Basophils # (Auto) 0.02 0.03 0-0.2 K/uL RDW Standard Deviation 47.5 47.9 36.4-46.3 fL RDW Coefficient of Variation 14.5 14.7 11.5-14.5 % Immature Granulocyte % (Auto) 0.2 0.2 % Immature Granulocyte # (Auto) 0.01 0.01 0.00-0.02 K/uL Prothrombin Time 10.1 9.0-12.0 SECONDS Prothromb Time International Ratio 0.9 0.9-1.1 Activated Partial Thromboplast Time 26.4 21.0-31.0 SECONDS Partial Thromboplastin Ratio 1.0 Sodium Level 139 141 136-145 mmol/L Potassium Level 3.1 3.5 3.5-5.1 mmol/L Chloride Level 105 106 98-107 mmol/L Carbon Dioxide Level 31 31 21-32 mmol/L Anion Gap 4.0 4.0 3-11 mmol/L Blood Urea Nitrogen 31 27 7-18 mg/dl Creatinine 0.92 0.90 0.60-1.40 mg/dl Est Creatinine Clear Calc Drug Dose 68.9 70.4 ml/min Estimated GFR () 96.6 99.2 Estimated GFR (Non- 83.4 85.6 BUN/Creatinine Ratio 33.8 30.5 10-20 Random Glucose 165 94 70-99 mg/dl Calcium Level 8.8 8.7 8.5-10.1 mg/dl Total Bilirubin 0.2 0.2-1 mg/dl Direct Bilirubin < 0.1 0-0.2 mg/dl Aspartate Amino Transf (AST/SGOT) 15 15-37 U/L Alanine Aminotransferase (ALT/SGPT) 14 12-78 U/L Alkaline Phosphatase 78 45-117 U/L Total Protein 6.7 6.4-8.2 gm/dl Albumin 2.9 3.4-5.0 gm/dl Magnesium Level 1.9 1.8-2.4 mg/dl Microbiology Results 06/12/17 MRSA DNA Surveillance Screen - Final, Complete Specimen Negative for MRSA by DNA Probe
[2017-06-12 23:21] VITALS: BP 134/75; PULSE 72; TEMP 36.8; O2SAT 97
[2017-06-13] MEDS: LEVOTHYROXINE 50 MCG TAB PO SCH ×2 (06:00→06:22)
[2017-06-13 06:45] LABS: BUN/CREATININE RATIO 25.6 (10-20); CALCIUM 8.5 mg/dl (8.5-10.1); CREATININE 0.92 mg/dl (0.60-1.40); MAGNESIUM 1.9 mg/dl (1.8-2.4)
[2017-06-13 08:07] LABS: BASO % 0.4 %; BASO ABS # 0.02 K/uL (0-0.2); COMPLETE YES; HEMATOCRIT 32.4 % (42-52); IG% 0.2 %; LYMPH % 32.2 %; LYMPH ABS # 1.54 K/uL (1.2-3.4); MEAN CORPUSCULAR HEMOGLOBIN 29.9 pg (25-34); MEAN CORPUSCULAR HGB CONC 33.6 g/dl (32-36); MEAN PLATELET VOLUME 9.2 fL (7.4-10.4); MONO % 7.7 %; NEUT % 55.5 %; PLATELET COUNT 244 K/uL (130-400); RED BLOOD COUNT 3.64 M/uL (4.7-6.1); WHITE BLOOD COUNT 4.79 K/uL (4.8-10.8)
[2017-06-13 08:49] VITALS: BP 149/94; PULSE 77; TEMP 36.8; O2SAT 98
[2017-06-13] MEDS: DOCUSATE SODIUM 100 MG CAP PO SCH (09:00)
[2017-06-13] MEDS: LORAZEPAM 1 MG TAB PO SCH (09:00)
[2017-06-13] MEDS: HYDROCHLOROTHIAZIDE 25 MG TAB PO SCH (09:01)
--- NOTE | 2017-06-13 10:16 | Surgery Progress Note ---
Surgery Progress Note Date of Service Jun 13, 2017. Subjective Post OP Day: POD # 10 s/p right inguinal hernia repair at outside hospital again ROS unreliable from patient Objective Vital Signs: Date Time Temp Pulse Resp B/P (MAP) Pulse Ox O2 Delivery O2 Flow Rate FiO2 06/13/17 08:49 36.8 77 17 149/94 (112) 98 Room Air 06/13/17 07:50 Room Air 06/12/17 23:45 Room Air 06/12/17 23:21 36.8 72 16 134/75 (94) 97 Room Air 06/12/17 15:38 37.0 80 18 133/87 (102) 95 Room Air 06/12/17 15:30 Room Air General Appearance: WD/WN, no apparent distress Head: normocephalic, atraumatic Neck: trachea midline Respiratory/Chest: no respiratory distress, no accessory muscle use Incision(s): clean, dry, intact, findings (dressing clean and dry, there is moderate edema at incision site and ecchymosis however stable and not increasing compared to yesterdays exam) Laboratory Results: Results Past 24 Hours Test 06/12/17 13:09 06/13/17 06:01 Range/Units Hemoglobin 10.4 10.9 14.0-18.0 g/dL Hematocrit 32.1 32.4 42-52 % White Blood Count 4.79 4.8-10.8 K/uL Red Blood Count 3.64 4.7-6.1 M/uL Mean Corpuscular Volume 89.0 80-100 fL Mean Corpuscular Hemoglobin 29.9 25-34 pg Mean Corpuscular Hemoglobin Concent 33.6 32-36 g/dl Platelet Count 244 130-400 K/uL Mean Platelet Volume 9.2 7.4-10.4 fL Neutrophils (%) (Auto) 55.5 % Lymphocytes (%) (Auto) 32.2 % Monocytes (%) (Auto) 7.7 % Eosinophils (%) (Auto) 4.0 % Basophils (%) (Auto) 0.4 % Neutrophils # (Auto) 2.66 1.4-6.5 K/uL Lymphocytes # (Auto) 1.54 1.2-3.4 K/uL Monocytes # (Auto) 0.37 0.11-0.59 K/uL Eosinophils # (Auto) 0.19 0-0.5 K/uL Basophils # (Auto) 0.02 0-0.2 K/uL RDW Standard Deviation 48.2 36.4-46.3 fL RDW Coefficient of Variation 14.9 11.5-14.5 % Immature Granulocyte % (Auto) 0.2 % Immature Granulocyte # (Auto) 0.01 0.00-0.02 K/uL Sodium Level 141 136-145 mmol/L Potassium Level 4.0 3.5-5.1 mmol/L Chloride Level 106 98-107 mmol/L Carbon Dioxide Level 30 21-32 mmol/L Anion Gap 5.0 3-11 mmol/L Blood Urea Nitrogen 24 7-18 mg/dl Creatinine 0.92 0.60-1.40 mg/dl Est Creatinine Clear Calc Drug Dose 68.9 ml/min Estimated GFR () 96.6 Estimated GFR (Non- 83.4 BUN/Creatinine Ratio 25.6 10-20 Random Glucose 85 70-99 mg/dl Calcium Level 8.5 8.5-10.1 mg/dl Magnesium Level 1.9 1.8-2.4 mg/dl Troponin I < 0.015 0-0.045 ng/ml Assessment & Plan POD # 10 s/p right inguinal hernia repair at outside hospital. Presented to emergency department with post operative bleeding. Bleeding has stopped. There is some mild edema of the surgical site, no active bleeding. Hemoglobin has remained stable 10.9/32.4 respectively today. Plan: No active bleeding, edema and ecchymosis stable. Stable from post operative perspective Discharge back to correctional facility once medically stable Should keep compression dressing on incision site and change daily or as needed Follow-up with Surgeon who repaired hernia in about 3 days for follow-up and possible staple removal Dr. aJy has seen and examined patient, agrees with above.
--- NOTE | 2017-06-13 12:55 | Discharge Instructions ---
Discharge Instructions Date of Service Jun 13, 2017. Admission Reason for Admission: Post-Op Bleeding Discharge Discharge Diagnosis / Problem: POST OP BLEEDING FORM RECENT RIGHT INGUINAL HERNIA SURGERY- STABLE Discharge Goals Goal(s): Decrease discomfort, Improve function Activity Recommendations Activity Limitations: resume your previous activity . Instructions / Follow-Up Instructions / Follow-Up FOLLOWUP WITH SURGERY IN 3 DAYS SHOULD KEEP COMPRESSION DRESSING ON INCISION SITE AND CHANGE DAILY OR NEEDED UNTIL SEEN BY SURGERY FOLLOWUP WITH FAMILY DOCTOR IN ONE WEEK Current Hospital Diet Patient's current hospital diet: AHA Diet (Heart Healthy) Discharge Diet Recommended Diet: AHA Diet (Heart Healthy) Pending Studies Studies pending at discharge: no Medical Emergencies . Who to Call and When: Medical Emergencies: If at any time you feel your situation is an emergency, please call 911 immediately. . Non-Emergent Contact Non-Emergency issues call your: Primary Care Provider . . "Provider Documentation" section prepared by Omi Thapa. . VTE Core Measure Inpt VTE Proph given/why not?: SCD's
[2017-06-13 13:18] VITALS: BP 149/94; PULSE 77; TEMP 36.8; O2SAT 98
--- NOTE | 2017-06-13 18:31 | Progress Note ---
Internal Med Progress Note Date of Service: Jun 13, 2017. Provider Documentation: SUBJECTIVE: resting comfortably says no pain or nausea afebrile OBJECTIVE: Vital Signs-as noted below Exam: General-alert and awake. Not in distress ENT-normal hearing Neck-no neck masses Lungs-cta b/l no wheezing or crackles present Heart-s1 and s2 heard regular rate and rhythm no murmurs Abdomen-soft bowel sounds present abdominal hernia seen right inguinal hernia repair site in dressing and clean Extremities-no erythema no edema Neuro-alert and awake moves extremities Lab data as noted below. ASSESSMENT & PLAN: S/P right inguinal hernia repair#10, Incision hematoma Acute blood loss anemia: No signs of infection CT abd: unremarkable hb stable seen by surghery and appreciate inputs discharged to f/u with surgery soon Hypokalemia: Replaced Neurogenic bladder: Uses straight cath TID at baseline per records HTN: stable on hctz Hypothyroidism: on levothyroxine Schizophrenia continue home meds discharged Vital Signs: Date Time Temp Pulse Resp B/P (MAP) Pulse Ox O2 Delivery O2 Flow Rate FiO2 06/13/17 13:18 36.8 77 17 98 Room Air 06/13/17 08:49 36.8 77 17 149/94 (112) 98 Room Air 06/13/17 07:50 Room Air 06/12/17 23:45 Room Air 06/12/17 23:21 36.8 72 16 134/75 (94) 97 Room Air Lab Results: Results Past 24 Hours Test 06/13/17 06:01 Range/Units White Blood Count 4.79 4.8-10.8 K/uL Red Blood Count 3.64 4.7-6.1 M/uL Hemoglobin 10.9 14.0-18.0 g/dL Hematocrit 32.4 42-52 % Mean Corpuscular Volume 89.0 80-100 fL Mean Corpuscular Hemoglobin 29.9 25-34 pg Mean Corpuscular Hemoglobin Concent 33.6 32-36 g/dl Platelet Count 244 130-400 K/uL Mean Platelet Volume 9.2 7.4-10.4 fL Neutrophils (%) (Auto) 55.5 % Lymphocytes (%) (Auto) 32.2 % Monocytes (%) (Auto) 7.7 % Eosinophils (%) (Auto) 4.0 % Basophils (%) (Auto) 0.4 % Neutrophils # (Auto) 2.66 1.4-6.5 K/uL Lymphocytes # (Auto) 1.54 1.2-3.4 K/uL Monocytes # (Auto) 0.37 0.11-0.59 K/uL Eosinophils # (Auto) 0.19 0-0.5 K/uL Basophils # (Auto) 0.02 0-0.2 K/uL RDW Standard Deviation 48.2 36.4-46.3 fL RDW Coefficient of Variation 14.9 11.5-14.5 % Immature Granulocyte % (Auto) 0.2 % Immature Granulocyte # (Auto) 0.01 0.00-0.02 K/uL Sodium Level 141 136-145 mmol/L Potassium Level 4.0 3.5-5.1 mmol/L Chloride Level 106 98-107 mmol/L Carbon Dioxide Level 30 21-32 mmol/L Anion Gap 5.0 3-11 mmol/L Blood Urea Nitrogen 24 7-18 mg/dl Creatinine 0.92 0.60-1.40 mg/dl Est Creatinine Clear Calc Drug Dose 68.9 ml/min Estimated GFR () 96.6 Estimated GFR (Non- 83.4 BUN/Creatinine Ratio 25.6 10-20 Random Glucose 85 70-99 mg/dl Calcium Level 8.5 8.5-10.1 mg/dl Magnesium Level 1.9 1.8-2.4 mg/dl Troponin I < 0.015 0-0.045 ng/ml
--- NOTE | 2017-06-13 18:33 | Discharge Summary ---
Discharge Summary Date of Service Jun 13, 2017. Discharge Summary Admission Date: Jun 12, 2017 at 01:46 Discharge Date: Jun 13, 2017 Discharge Disposition: Home (correctional facility) Principal Diagnosis: Recent inguinal hernia repair site bleeding/hematoma acute blood loss anemia Secondary Diagnoses/Problems: Neurogenic bladder, HTN, Hypothyroidism, Schizophrenia Procedures: CHEST/ABDOMINAL XRAY: 1. No evidence of bowel obstruction. No evidence of free air 2. Right-sided abdominal calcification, likely representing either renal calculus or gallstone Consultations: SURGERY Medication Reconciliation Continued Medications: Docusate Sodium (Docusate Sodium) 250 Mg Cap 500 MG PO BID Haloperidol Decanoate (Haldol Decanoate 100) 100 Mg/Ml Inj 1 ML IM [id number] for 30 Days, #1 ML 2 Refills Hydrochlorothiazide (Hctz) 25 Mg Tab 25 MG PO DAILY, TAB Levothyroxine Sodium (Levothyroxine Sodium) 50 Mcg Tab 50 MCG PO DAILY, TAB 3 Refills Lorazepam (Ativan) 1 Mg Tab 1 MG PO DAILY, TAB Nystatin (Topical) ([facility]) 100,000 Unit/Gm Pow 1 DOSE TOP BID Admission Information HPI (per Admitting provider): Patient is a 72 Yr male with PMH of Neurogenic bladder, HTN, Hypothyroidism, Schizophrenia and other problems who recently got Right Inguinal hernia repair presents with history of sudden onset of bleeding from the surgical site today. Patient is a very poor historian and most of the history is obtained from Old medical records, ED staff. Patient denies any history of chest pain, SOB, abdominal pain, nausea, vomiting, fever, chills, headache, dizziness. No other history could be obtained. Physical Exam (per Admitting): General Appearance: WD/WN, no apparent distress Head: normocephalic, atraumatic Eyes: normal inspection, PERRL, EOMI, sclerae normal ENT: normal ENT inspection, hearing grossly normal Neck: supple, no JVD, trachea midline Respiratory/Chest: chest non-tender, lungs clear, normal breath sounds, no respiratory distress, no accessory muscle use Cardiovascular: regular rate, rhythm, no edema, no murmur Abdomen/GI: non tender, soft, + hernia (abdominal), + pertinent finding ( Right Inguinal ricardo and dressing with bleeding) Back: normal inspection Extremities/Musculoskelatal: normal inspection, no pedal edema Neurologic/Psych: no motor/sensory deficits, alert, normal mood/affect, oriented x 3, + pertinent finding (Grossly no focal deficits) Skin: normal color, warm/dry Hospital Course S/P right inguinal hernia repair#10, Incision hematoma Acute blood loss anemia: No signs of infection CT abd: unremarkable hb stable seen by surghery and appreciate inputs discharged to f/u with surgery soon Hypokalemia: Replaced Neurogenic bladder: Uses straight cath TID at baseline per records HTN: stable on hctz Hypothyroidism: on levothyroxine Schizophrenia continue home meds discharged Total time spent on discharge = 35MINUTES This includes examination of the patient, discharge planning, medication reconciliation, and communication with other providers. Discharge Instructions Discharge Instructions Date of Service Jun 13, 2017. Admission Reason for Admission: Post-Op Bleeding Discharge Discharge Diagnosis / Problem: POST OP BLEEDING FORM RECENT RIGHT INGUINAL HERNIA SURGERY- STABLE Discharge Goals Goal(s): Decrease discomfort, Improve function Activity Recommendations Activity Limitations: resume your previous activity . Instructions / Follow-Up Instructions / Follow-Up FOLLOWUP WITH SURGERY IN 3 DAYS SHOULD KEEP COMPRESSION DRESSING ON INCISION SITE AND CHANGE DAILY OR NEEDED UNTIL SEEN BY SURGERY FOLLOWUP WITH FAMILY DOCTOR IN ONE WEEK Current Hospital Diet Patient's current hospital diet: AHA Diet (Heart Healthy) Discharge Diet Recommended Diet: AHA Diet (Heart Healthy) Pending Studies Studies pending at discharge: no Medical Emergencies . Who to Call and When: Medical Emergencies: If at any time you feel your situation is an emergency, please call 911 immediately. . Non-Emergent Contact Non-Emergency issues call your: Primary Care Provider . . "Provider Documentation" section prepared by Omi Thapa. . VTE Core Measure Inpt VTE Proph given/why not?: SCD's
== END 2017-06-13 15:07 | disposition home or self-care (01) | DRG 920 ==
LOC: C.EDB 20:32 → C.MSW 06-12 01:46 → ENRESERV 06-12 01:51
PROVIDERS: ADMIT Internal Medicine; ATTEND Internal Medicine
DX: L76.22 Postprocedural hemorrhage of skin and subcutaneous tissue following other procedure (principal); D62 Acute posthemorrhagic anemia; E87.6 Hypokalemia; N31.9 Neuromuscular dysfunction of bladder, unspecified; I10 Essential (primary) hypertension; E03.9 Hypothyroidism, unspecified; F20.9 Schizophrenia, unspecified